=== PATIENT | female | born 1980 | race Caucasian/White ===

== ENCOUNTER 2023-06-12 13:48 | Outpatient (CLI) | payer OTHER, SELFPAY ==
--- NOTE | 2023-06-12 13:45 | MM_ITS ---
WS: [id number] BILATERAL 3D TOMOSYNTHESIS DIGITAL SCREENING MAMMOGRAPHY WITH CAD CLINICAL INFORMATION: SCREENING HISTORY: Screening mammogram. No current complaints. COMPARISON: Baseline TECHNIQUE: Bilateral CC and MLO views. FINDINGS: The breasts are composed of heterogeneous fibroglandular density tissue, which can limit the detectio n of small underlying mass lesions. No suspicious mass, asymmetry, calcifications, or architectural d istortion. No evidence of malignancy. IMPRESSION: MM/[place] [id number] BI-RADS: 1-Negative FOLLOW UP: 1 Year Follow-up Recommend return to annual screening mammography.
== END 2023-06-12 13:49 | disposition home or self-care (01) ==
LOC: MOBLMAM 13:57
PROVIDERS: Visit Provider Family Medicine
DX: Z12.31 Encounter for screening mammogram for malignant neoplasm of breast (principal)
CPT/HCPCS: 77063; 77067

== ENCOUNTER → 2023-07-27 15:50 | Outpatient (BNVA) | payer OTHER, SELFPAY | PROVIDERS: Visit Provider Nurse Practitioner Women's Health | DX: Z12.4 Encounter for screening for malignant neoplasm of cervix (principal); N93.9 Abnormal uterine and vaginal bleeding, unspecified | CPT/HCPCS: 83550; 85025; 87624 ==

== ENCOUNTER → 2023-08-01 14:56 | Outpatient (BNVA) | payer OTHER, SELFPAY | PROVIDERS: Visit Provider Nurse Practitioner Women's Health | DX: N92.0 Excessive and frequent menstruation with regular cycle (principal); R93.89 Abnormal findings on diagnostic imaging of other specified body structures | CPT/HCPCS: 76830 ==

== ENCOUNTER 2023-08-10 11:33 | Day surgery (SDC) | payer OTHER, SELFPAY ==
--- NOTE | 2023-08-09 23:48 | P.HP_ITS ---
Same Day Surgery H&P Indication for Procedure/HPI DATE OF PROCEDURE: August 10, 2023 CHIEF COMPLAINT/INDICATIONFOR SURGICAL PROCEDURE: abnormal uterine bleeding PREOP DIAGNOSIS: abnormal uterine bleeding PLANNED PROCEDURE: Operation Date: 08/10/23 13:30 Proposed Procedures p Hysteroscopy, endometrial sampling [id number], N93.9,N92.6(Not Applicable) - Calvin Sarabia MD s possible endometrial polypectomy(Not Applicable) - Calvin Sarabia MD s Placement of Intrauterine Device(Not Applicable) - Calvin Sarabia MD 43 y.o. h/o heavy, irregular uterine bleeding and anemia now scheduled for hysteroscopy, endometrial sampling, possible endometrial polypectomy; mirena intrauterine device placement Medications/Allergies* Allergies/Adverse Reactions Allergy/AdvReac Type Severity Reaction Status Date / Time No Known Allergies Allergy Verified 08/09/23 10:56 Pertinent History/Comorbid Conditions* Family History (Updated 07/27/23 @ 14:58 by Roma Vasquez [facility]) Ovarian cancer Grandfather Breast cancer Grandmother Denies family history of Colon cancer Diabetes Heart disease Hypertension Uterine cancer Thyroid disease Stroke Pertinent Exam Findings alert, oriented x 3, clear to auscultation bilaterally and regular rate & rhythm Pertinent Data Pelvic sono 08-01-23 uterus 9.5 x 5.1 x 6.8 cm Endometrium 2.8 cm Normal ovaries 06-30-23 Hgb 6.8 Recommendations Surgery/Procedure today Coding Level of Care Code Acute Code for Chg Fwd Time Spent (min) 20
[2023-08-10] VITALS (10 sets, daily range): BP systolic 114–148; BP diastolic 65–86; PULSE 16–72; RESP 16–99; TEMP 36.1–36.9; O2SAT 95–100; BMI 30.1
[2023-08-10] MEDS: sodium chloride 0.9% 1,000 ML 30 ML IV (12:22)
[2023-08-10] MEDS: scopolamine 1.5 Patch 1 PATCH TRANSDERMA (12:22)
--- NOTE | 2023-08-10 12:46 | ANES.PREANE2 ---
Pre-Anesthetic Assessment Height/Weight: Height 1.73 m Weight 89.811 kg Temp Pulse Resp BP Pulse Ox O2 Del Method 98.4 F 72 16 128/75 100 Room Air 08/10/23 12:06 08/10/23 12:06 08/10/23 12:06 08/10/23 12:06 08/10/23 12:06 08/10/23 12:09 Preop Diagnosis: abnormal uterine bleeding Operation Date: 08/10/23 13:30 Proposed Procedures p Hysteroscopy, endometrial sampling 47619,84286, N93.9,N92.6(Not Applicable) - Calvin Sarabia MD s possible endometrial polypectomy(Not Applicable) - Calvin Sarabia MD s Placement of Intrauterine Device(Not Applicable) - Calvin Sarabia MD Familial anesthetic complications: none Was Beta Pedro taken within 24 hours: N/A Was Clonidine taken within 24 hours: N/A Last intake: Intake Last Liquid Date 08/09/23 Last Liquid Time 20:00 Last Solid Date 08/09/23 Last Solid Time 19:00 Social No alcohol and No tobacco Exam alert, oriented x 3, clear to auscultation bilaterally and regular rate & rhythm Airway Mallampati: Class I Dentition: full Anesthetic Plan ASA status: 1 Anesthesia: General Risk of > 500 ml blood loss (7ml/kg in children): No Medications/Allergies Home Medications Medication Instructions Recorded Confirmed Last Taken Type ferric citrate 210 mg iron tablet 210 mg PO BID #60 tabs 08/07/23 08/09/23 Unknown Rx (Auryxia) Allergies Allergy/AdvReac Type Severity Reaction Status Date / Time No Known Allergies Allergy Verified 08/09/23 10:56 Current Medications Generic Name Dose Route Start Last Admin Trade Name Freq PRN Reason Stop Dose Admin Sodium Chloride 1,000 mls @ 30 mls/hr 08/10/23 11:45 08/10/23 12:22 Sodium Chloride 0.9% IV 08/11/23 11:44 30 mls/hr .Q24H GARCIA Administration PFSH Anesthesia Family History Grandfather Ovarian cancer Grandmother Breast cancer Denies family history of Colon cancer Diabetes Heart disease Hypertension Uterine cancer Thyroid disease Stroke Data Anesthesia Cardiac Studies: No Data to Display
[2023-08-10 12:47] LABS: OR HCG Qualitative Urine Negative (Negative)
--- NOTE | 2023-08-10 12:55 | W.PM.OPSUD ---
Surgery/Procedure H&P Update DATE OF PROCEDURE: August 10, 2023 DATE H&P PERFORMED: 08/01/23 H&P UPDATE INFORMATION: I have reviewed H&P completed within last 30 days, I have examined patient prior to procedure and No changes to prior documentation PREOP DIAGNOSIS: abnormal uterine bleeding PRIMARY INDICATION FOR PROCEDURE: abnormal uterine bleeding PLANNED PROCEDURE: Operation Date: 08/10/23 13:30 Proposed Procedures p Hysteroscopy, endometrial sampling [id number], N93.9,N92.6(Not Applicable) - Calvin Sarabia MD s possible endometrial polypectomy(Not Applicable) - Calvin Sarabia MD s Placement of Intrauterine Device(Not Applicable) - Calvin Sarabia MD
--- NOTE | 2023-08-10 23:43 | PM.OP ---
Operative Report Date of procedure: August 10, 2023 Pre-op diagnosis: abnormal uterine bleeding severe anemia Post-op diagnosis: abnormal uterine bleeding severe anemia endometrial polyps Post-op findings: scattered endometrial polyps + moderate amount of fluffy endometrial tissue Procedure done: hysteroscopy Endometrial sampling with Myosure Endometrial polypectomy with Myosure Curettage of uterus Placement of mirena intrauterine device Implants: mirena intrauterine device Specimens removed/disposition: endometrial tissue Surgeon: Calvin Sarabia MD Anesthesia: General Estimated blood loss (mL): 5 Complications: none Condition: stable Disposition: PACU Brief History: 43 y.o. h/o BTL Periods 2 weeks per month x one year Very heavy with large clots, bleeding for two weeks per month Saturating one tampon every 1-3 hours Hgb was 6.8 on June 30, 2023 patient was scheduled for hysteroscopy, endometrial sampling, possible endometrial polypectomy; mirena intrauterine device placement Procedure: Informed consent signed. Patient taken to the operating room. Anesthesia induced. Patient was placed in dorsolithotomy position, prepped and draped for hysteroscopy. A bivalve speculum was placed in the vagina. The anterior lip of the cervix was grasped with a sharp-toothed tenaculum. The uterus was sounded to 9 cm. The cervix was serially dilated with Hegar dilators. . A hysteroscope was placed into the endometrial cavity. There were scattered endometrial polyps. There was moderate amount of fluffy appearing endometrial tissue. The Myosure device was used to remove the polyps and endometrial tissue. The hysteroscope was then removed. Endometrial curettage was done with a sharp curette. Endometrial tissue was sent to pathology. The mirena intrauterine device was then prepared, placed into the endometrial cavity and deployed. A 3-4 cm string was left at the cervical os. The sharp-toothed tenaculum was removed. There was no bleeding from the endometrial cavity or cervix. The patient was then placed supine and awakened and taken to the PACU. Postop condition: stable EBL: 5 cc Sponge and instruments counts were normal x 2 Complications: none
== END 2023-08-10 15:33 | disposition home or self-care (01) ==
PROVIDERS: Anesthesiology; PCP Obstetrics & Gynecology; Visit Provider Obstetrics & Gynecology
PROC: 0UJD8ZZ Inspection of Uterus and Cervix, Via Natural or Artificial Opening Endoscopic (ICD-10-PCS; CPT 58555; principal; 2023-08-10 13:20)
PROC: (CPT 58300; 2023-08-10 13:20)
PROC: (CPT 58300; 2023-08-10 13:20)
DX: N93.9 Abnormal uterine and vaginal bleeding, unspecified (principal); D64.9 Anemia, unspecified; N84.0 Polyp of corpus uteri
CPT/HCPCS: 58300; 58558; 81025; 84703; 88305; J1100; J1885; J2371; J2405; J2704; J3010; J3490; J7030

== ENCOUNTER 2023-08-18 09:04 | Oncology outpatient (recurring) (ONCR) | payer OTHER, SELFPAY ==
[2023-08-08] MEDS: sodium chloride 0.9% 250 ML 75 ML IV (15:03)
[2023-08-08] MEDS: iron sucrose 200 MG in sodium chloride 0.9% (100 ml) 100 ML 220 MG IV (15:03)
[2023-08-08 15:05] VITALS: BP 153/83; PULSE 76; RESP 16; TEMP 37.4; O2SAT 99
[2023-08-08 15:52] VITALS: BP 142/87; PULSE 74; RESP 16; TEMP 37.2; O2SAT 99
[2023-08-10 09:04] VITALS: BP 138/82; PULSE 86; RESP 16; TEMP 36.8; O2SAT 98
[2023-08-10] MEDS: sodium chloride 0.9% 250 ML 75 ML IV (09:21)
[2023-08-10] MEDS: iron sucrose 200 MG in sodium chloride 0.9% (100 ml) 100 ML 220 MG IV (09:35)
[2023-08-14] MEDS: sodium chloride 0.9% 250 ML 75 ML IV (15:08)
[2023-08-14] MEDS: iron sucrose 200 MG in sodium chloride 0.9% (100 ml) 100 ML 220 MG IV (15:08)
[2023-08-16 13:50] VITALS: BP 145/81; PULSE 71; RESP 16; O2SAT 95
[2023-08-16] MEDS: iron sucrose 200 MG in sodium chloride 0.9% (100 ml) 100 ML 220 MG IV (14:16)
[2023-08-16] MEDS: sodium chloride 0.9% 250 ML 75 ML IV (14:16)
[2023-08-16 15:00] VITALS: BP 126/80; PULSE 61; RESP 16; TEMP 37.2; O2SAT 100
[2023-08-18 09:15] VITALS: BP 161/84; PULSE 60; RESP 16; TEMP 36.8; O2SAT 99
[2023-08-18] MEDS: sodium chloride 0.9% 250 ML 75 ML IV (09:32)
[2023-08-18] MEDS: iron sucrose 200 MG in sodium chloride 0.9% (100 ml) 100 ML 220 MG IV (09:45)
[2023-08-18 10:20] VITALS: PULSE 58; RESP 16; TEMP 36.9; O2SAT 96
== END 2023-08-27 23:59 | disposition home or self-care (01) ==
PROVIDERS: PCP Obstetrics & Gynecology; Visit Provider Obstetrics & Gynecology
DX: D50.9 Iron deficiency anemia, unspecified (principal); Z53.9 Procedure and treatment not carried out, unspecified reason
CPT/HCPCS: 96365; J1756; J7050

== ENCOUNTER 2023-09-29 16:07 | Emergency (ER) | payer OTHER, SELFPAY ==
[2023-09-29 16:17] VITALS: BP 161/97; PULSE 55; RESP 16; TEMP 36.6; O2SAT 100
[2023-09-29 17:28] LABS: Basophils # 0.1 10^3/uL (0.0-0.1); Basophils % 0.6 %; Eosinophils # 0.1 10^3/uL (0.0-0.8); Eosinophils % 0.9 %; Hematocrit 44.9 % (36-47); Lymphocytes # 1.4 10^3/uL (0.8-4.8); Lymphocytes % 14.4 %; Mean Corpuscular HGB Conc 29.4 g/dL (30-55); Mean Corpuscular Volume 74.7 fl (85-98); Mean Platelet Volume 9.4 fL (7.4-10.4); Monocytes # 0.3 10^3/uL (0.2-0.9); Neutrophils # 7.66 10^3/uL (1.8-7.7); Neutrophils % 80.8 %; Nucleated Red Blood Cells % 0 %; Platelet Count 310 10^3/cmm (157-399); Red Blood Count 6.01 10^6/uL (3.85-5.65); Red Cell Distribution Width 23.1 % (12.1-15.1); White Blood Count 9.49 10^3/uL (3.29-11.43)
[2023-09-29 17:41] LABS: Alanine Aminotransferase 10 U/L (0-33); Albumin Level 4.7 g/dL (3.5-5.2); Alkaline Phosphatase 88 U/L (35-105); Anion Gap 15.8 (5-19); Aspartate Amino Transferase 15 U/L (0-32); Blood Urea Nitrogen 12 mg/dL (6-20); Calcium 9.9 mg/dL (8.5-10.5); Carbon Dioxide 22 mmol/L (22-29); Chloride 104 mmol/L (98-107); Globulin 3.3 g/dL (1.3-4.6); Glomerular Filtration Rate 91.3 mL/min (90-130); Glucose 108 mg/dL (65-115); Osmolality Calculated 286 mOsm/kg (285-295); Potassium 3.8 mmol/L (3.5-5.1); Sodium 138 mmol/L (136-145); Total Bilirubin 1.2 mg/dL (0.15-1.2)
[2023-09-29 17:42] LABS: HCG, Serum Qual Negative (Negative)
[2023-09-29 18:12] VITALS: BP 161/97; PULSE 57; RESP 15; O2SAT 100
[2023-09-29 18:44] LABS: Add Urine Microscopic? YES; Bilirubin Urine Neg (Negative); Blood Urine 3+ (Negative); Glucose Urine UA Norm (Normal); Ketones Urine 1+ (Negative); Leukocyte Esterase Urine Negative (Negative); Nitrate Urine Negative (Negative); Protein Urine Neg (Negative); Urine Appearance SL Hazy (CLEAR); Urine Color Colorless (Yellow); Urobilinogen Urine Norm (Negative); pH Urine 5 (5-7)
--- NOTE | 2023-09-29 18:44 | ED_ITS ---
HPI - Female Genitourinary 2 General: Chief complaint: Vaginal Bleeding Stated complaint: sent over by dr garcia esposito Time Seen by Provider: 09/29/23 16:55 History of Present Illness: Patient is in today for dizziness and vaginal bleeding. She reports that in July she had a hysteroscopy and then she had to have 5 iron infusions because she was so anemic. She reports that during her hysteroscopy she did have an IUD Mirena placed. She reports that the past 3 weeks she has been having vaginal bleeding. She reports that the first week was extremely heavy the last 2 weeks have not been as heavy but she is still bleeding. She reports that today at work she became very dizzy and tired. She felt like she was anemic again. Her boss drove her home. She reports that she called Dr. Sarabia's office and they advised her to come to the ER for evaluation. She reports that when she had her hysteroscopy she had numerous polyps removed. She denies any fever, chills. She denies any vomiting. She did feel a little nauseated when she was dizzy earlier. She actually reports that those symptoms are resolved. She just feels tired. Associated symptoms: Reports vaginal bleeding; Deny abdominal pain or nausea Review of Systems 2 Const: Denies: fever(s) or chills Card: Denies: chest pain or palpitations Resp: Denies: dyspnea, productive cough or non-productive cough GI: Denies: abdominal pain, nausea or vomiting : Reports: vaginal bleeding; Denies: flank pain, difficulty voiding or dysuria PFSH ED 2 PFSH: Family History Grandfather Ovarian cancer Grandmother Breast cancer Denies family history of Colon cancer Diabetes Heart disease Hypertension Uterine cancer Thyroid disease Stroke Physical Exam 2 Const: COMMON NORMALS: no acute distress, patient oriented x3, healthy appearing, alert and well nourished Neck/C-Spine: COMMON NORMALS: no JVD Resp: COMMON NORMALS: normal respiratory effort, No use of accessory muscles and clear to auscultation bilaterally AUSCULTATION: clear to auscultation bilaterally Cardio: COMMON NORMALS: no JVD, regular rate, regular rhythm, S1 normal heart sound present and S2 normal heart sound present RATE: regular rate RHYTHM: regular rhythm HEART SOUNDS: S1 normal heart sound present and S2 normal heart sound present GI: COMMON NORMALS: Normal to inspection, nondistended, normoactive bowel sounds present, Soft to palpation and non-tender PALPATION: Yes Soft to palpation : SPECULUM EXAM - VAGINA: Yes vaginal bleeding Amount: medium/moderate S PECULUM EXAM - CERVIX: Yes Cervical bleeding and Yes IUD string present O B/EXTERNAL & SPECULUM: vaginal bleeding Neuro: COMMON NORMALS: patient oriented x3 SENSORIUM/ORIENTATION: Yes alert Course 2 Vital Signs: Vital signs: Vital Signs Temperature 97.9 F 09/29/23 16:17 Pulse Rate 57 L 09/29/23 18:12 Respiratory Rate 15 09/29/23 18:12 Blood Pressure 161/97 09/29/23 18:12 Pulse Oximetry 100 09/29/23 18:12 Oxygen Delivery Me thod Room Air 09/29/23 18:12 MDM - Female Medical Decision Making Vaginal bleeding. Labs unremarkable. Pelvic exam shows moderate cervical bleeding with IUD strings intact. [address] Sarabia and he advised that he was going to stop in and see the patient. 1900?Dr. Sarabia down to see the patient. I advised him of HPI and current lab results as well as physical exam findings. He agrees the patient can be discharged to home with continued follow-up with him. Patient is agreeable and ready to be discharged to home. She is discharged in stable condition Lab Data 09/29/23 17:09 09/29/23 17:09 Laboratory Results WBC 9.49 10^3/uL (3.29-11.43) 09/29/23 17:09 RBC 6.01 10^6/uL (3.85-5.65) H 09/29/23 17:09 Hgb 13.20 g/dL (11.27-16.99) 09/29/23 17:09 Hct 44.9 % (36-47) 09/29/23 17:09 MCV 74.7 fl (85-98) L 09/29/23 17:09 MCH 22.0 pg (27-33) L 09/29/23 17:09 MCHC 29.4 g/dL (30-55) L 09/29/23 17:09 RDW 23.1 % (12.1-15.1) H 09/29/23 17:09 Plt Count 310 10^3/cmm (157-399) 09/29/23 17:09 MPV 9.4 fL (7.4-10.4) 09/29/23 17:09 Neut % (Auto) 80.8 % 09/29/23 17:09 Lymph % (Auto) 14.4 % 09/29/23 17:09 [place] % (Auto) 3.0 % 09/29/23 17:09 Eos % (Auto) 0.9 % 09/29/23 17:09 Baso % (Auto) 0.6 % 09/29/23 17:09 Neut # (Auto) 7.66 10^3/uL (1.8-7.7) 09/29/23 17:09 Lymph # (Auto) 1.4 10^3/uL (0.8-4.8) 09/29/23 17:09 [place] # (Auto) 0.3 10^3/uL (0.2-0.9) 09/29/23 17:09 Eos # (Auto) 0.1 10^3/uL (0.0-0.8) 09/29/23 17:09 Baso # (Auto) 0.1 10^3/uL (0.0-0.1) 09/29/23 17:09 Nucleated RBC % (auto) 0 % 09/29/23 17:09 Nucleated RBCs # 0.0 /100WBC 09/29/23 17:09 Sodium 138 mmol/L (136-145) 09/29/23 17:09 Potassium 3.8 mmol/L (3.5-5.1) 09/29/23 17:09 Chloride 104 mmol/L (98-107) 09/29/23 17:09 Carbon Dioxide 22 mmol/L (22-29) 09/29/23 17:09 Anion Gap 15.8 (5-19) 09/29/23 17:09 BUN 12 mg/dL (6-20) 09/29/23 17:09 Creatinine 0.7 mg/dL (0.5-0.9) 09/29/23 17:09 GFR Calculation 91.3 mL/min (90-130) 09/29/23 17:09 Glucose 108 mg/dL (65-115) 09/29/23 17:09 Calculated Osmolality 286 mOsm/kg (285-295) 09/29/23 17:09 Calcium 9.9 mg/dL (8.5-10.5) 09/29/23 17:09 Total Bilirubin 1.2 mg/dL (0.15-1.2) 09/29/23 17:09 AST 15 U/L (0-32) 09/29/23 17:09 ALT 10 U/L (0-33) 09/29/23 17:09 Alkaline Phosphatase 88 U/L (35-105) 09/29/23 17:09 Total Protein 8.0 g/dL (6.6-8.7) 09/29/23 17:09 Albumin 4.7 g/dL (3.5-5.2) 09/29/23 17:09 Globulin 3.3 g/dL (1.3-4.6) 09/29/23 17:09 HCG, Qual Negative (Negative) 09/29/23 17:09 Urine Color Colorless (Yellow) 09/29/23 17:50 Urine Appearance Sl hazy (CLEAR) A 09/29/23 17:50 Urine pH 5 (5-7) 09/29/23 17:50 Ur Specific [place] 1.010 (1.005-1.030) 09/29/23 17:50 Urine Protein Neg (Negative) 09/29/23 17:50 Urine Glucose (UA) Norm (Normal) 09/29/23 17:50 Urine Ketones 1+ (Negative) H 09/29/23 17:50 Urine Blood 3+ (Negative) H 09/29/23 17:50 Urine Nitrate Negative (Negative) 09/29/23 17:50 Urine Bilirubin Neg (Negative) 09/29/23 17:50 Urine Urobilinogen Norm mg/dL (Negative) 09/29/23 17:50 Ur Leukocyte Esterase Negative (Negative) 09/29/23 17:50 Urine RBC 15-25 /hpf (0-2) H 09/29/23 17:50 Urine WBC 0-4 /hpf (0-5) H 09/29/23 17:50 Ur Squamous Epith Cells 0-4 /hpf (0-5) H 09/29/23 17:50 Amorphous Sediment Not Reportable 09/29/23 17:50 Urine Bacteria 1+ /hpf (NONE) H 09/29/23 17:50 Urine Mucus Trace /hpf 09/29/23 17:50 No radiology studies performed this visit Discharge Plan Discharge Patient Disposition: Home Clinical Impression: Irregular periods/menstrual cycles, Vaginal bleeding Condition: Stable Prescriptions: No Action Auryxia 210 mg iron tablet 210 mg PO BID Qty: 60 6RF Rx Instructions: administer with a meal Discharge Orders: Discharge ED (Routine); Ordered 09/29/23 Ordered By: La Phillips Referrals: Calvin Sarabia MD [Primary Care Provider] - Discharge Diet: Usual diet Discharge Activity: Resume usual activity Activity Restrictions/Additional Instructions: Your labs look good today. No major anemia. Follow-up with Dr. Sarabia as needed. Return to the ER for new or worsening symptoms. Make sure that you are staying well-hydrated Coding Level of Care Code ED Edge Trimming Machine Operator for Mark Manrique
[2023-09-29 18:45] LABS: Bacteria Urine 1+ /hpf; Mucus Urine TRACE /hpf; Squamous Epithelial Cell Urine 0-4 /hpf (0-5); WBC Urine 0-4 /hpf (0-5)
[2023-09-29 18:46] LABS: Add Urine Culture? Yes; RBC Urine 15-25 /hpf (0-2)
== END 2023-09-29 19:14 | disposition home or self-care (01) ==
PROVIDERS: Emergency Provider Nurse Practitioner Family; PCP Obstetrics & Gynecology
DX: N92.6 Irregular menstruation, unspecified (principal)
CPT/HCPCS: 36415; 80053; 81001; 84703; 85025; 87077; 87086; 87186; 99283

== ENCOUNTER 2025-03-13 09:06 | Outpatient (CLI) | payer OTHER, SELFPAY ==
--- NOTE | 2025-03-13 09:10 | MM_ITS ---
WS: [id number] BILATERAL SCREENING DIGITAL TOMOSYNTHESIS MAMMOGRAM WITH CAD HISTORY: SCREENING COMPARISON: 06/12/2023 Bilateral CC and MLO views with tomosynthesis and synthetic mammography submitted. Computer aided detection analyzed. Breast composition: The breasts are heterogeneously dense, which may obscure small masses. No suspicious masses, microcalcifications or architectural distortion. MM/MM scr BI tomosynthesis [id number] IMPRESSION: BI-RADS: 1 - Negative FOLLOW UP: 1 Year Follow-up
== END 2025-03-13 09:07 | disposition home or self-care (01) ==
LOC: MOBLMAM 09:09
PROVIDERS: PCP Obstetrics & Gynecology; Visit Provider Obstetrics & Gynecology
DX: Z12.31 Encounter for screening mammogram for malignant neoplasm of breast (principal); R92.333 Mammographic heterogeneous density, bilateral breasts
CPT/HCPCS: 77063; 77067